=== PATIENT | female | born 1930 | race Caucasian/White ===

== ENCOUNTER 2017-10-26 08:29 | Outpatient (CLI) | payer MEDICARE, OTHER ==
--- NOTE | 2017-10-26 08:55 | RAD ---
CERVICAL SPINE 3 VIEWS: HISTORY: Cervical spine fracture. Neck pain. FINDINGS: Vertebral body heights are maintained. There is disk space narrowing at the C3-4, C4-5, and C5-6 lev els. Cervicothoracic junction is not well evaluated. There is 0.2 cm spondylolisthesis at the C5-6 level. Displaced fracture is not apparent. Osteophyto sis throughout the vertebral bodies and facets. Horizontal lucency at the mid odontoid process on the open mouth odontoid and lateral views may repre sent a nondisplaced odontoid fracture. Correlation with prior exams and potentially CT is required. Prominent calcification over the arterial structures. POS: [facility]
== END 2017-10-26 08:30 | disposition home or self-care (01) ==
LOC: TBSIIMAG 08:29 → EDBD 08:29 → TBSIIMAG 08:30
PROVIDERS: ATTEND Neurological Surgery
DX: S12.9XXA Fracture of neck, unspecified, initial encounter (principal)
CPT/HCPCS: 72040